=== PATIENT | male | born 1980 | race Caucasian/White ===

== ENCOUNTER 2017-05-22 06:20 | Emergency (ER) | payer MEDICAID ==
--- NOTE | 2017-05-22 06:53 | ED Physician Chart ---
Chief Complaint/HPI - Patient Information Date Seen:: 05/22/17 Time Seen:: 06:30 Chief Complaint:: dizziness and blurred vision History of Present Illness:: Patient is a blurred vision and slight dizziness for the last 15 days. Dizziness is increased when he turns his head. He denies chest pain and shortness of breath. He has had no recent upper respiratory tract infection or cough. Allergies:: Allergies Allergy/AdvReac Type Severity Reaction Status Date / Time No Known Allergies Allergy Verified 05/22/17 06:45 Vitals:: Vital Signs - 8 hr 05/22/17 06:25 Temp 97.3 F HR 55 RR 16 BP 121/65 O2 Sat % 95 Historian:: Patient Review:: Nurse's Note Reviewed Review of Systems - Review of Systems General/Constitutional: No fever, No chills Skin: No skin lesions, No rash, No bruising Head: No headache, Light headed Eyes: No loss of vision ENT: No earache, No sore throat Neck: No neck pain, No thyromegaly Cardio Vascular: No chest pain, No palpitations Pulmonary: No SOB, No cough GI: No nausea, No vomiting G/U: No dysuria, No frequency Musculoskeletal: No bone or joint pain, No muscle pain Psychiatric: No prior psych history, No depression Hematopoietic: No bruising, No lymphadenopathy Allergic/Immuno: No urticaria, No angioedema Neurological: No syncope, No focal symptoms Past Medical History - Past Medical History Past Medical History: DM Family History: None Social History: Non Smoker, Legally (no current alcohol use but formerly drank alcohol heavily), Other Surgical History: None Psychiatricy History: None Medication: Reviewed Physical Exam - Physical Examination General/Constitutional: Well-developed, well-nourished, Alert, No distress Head: Atraumatic Eyes: Lids, conjuctiva normal, PERRL, EOMI Other Eyes comments:: No nystagmus; optic disc sharp; slight exophthalmos noted Skin: Nl inspection, No rash, No skin lesions, No ecchymosis, Well hydrated, No lymphadenopathy ENMT: External ears, nose nl, TM canals nl, Nasal exam nl, Lips, teeth, gums nl , Oropharynx nl, Tonsils nl Neck: No nuchal rigidity Respiratory: Nl effort/Exclusion, Clear to Auscultation Cardio Vascular: RRR, No murmur, gallop, rubs, NL S1 S2 GI: No tenderness/rebounding/guarding, No organomegaly, No hernia, Normal BS's, Nondistended, No mass/bruits, No McBurney tenderness : No CVA tenderness Extremities: Normal digits & nails Neuro/Psych: Alert/oriented, No focal deficits Other Neuro/Psych comments:: No facial asymmetry; strong equal hand grasp; finger to nose test intact Labs/Radiology/EKG Results - EKG Interpretations Rate & Rhythm: normal sinus rhythm with a rate of 62 [place]: normal Assessment - Assessment General Assessment: Endorsed to Dr. Wayne Jane at 0700 ED Septic Shock - . Is Septic Shock (SBP<90, OR Lactate>4 mmol\L) present?: No - <6hrs of presentation: Vital Signs: Vital Signs - 8 hr 05/22/ 06:25 Temp 97.3 F HR 55 RR 16 BP 121/65 O2 Sat % 95 Reassessment (Disposition) - Diagnosis Diagnosis:: Benign positional vertigo - Patient Disposition Discharge/Transfer:: Home Condition at Disposition:: Stable
[2017-05-22 07:08] LABS: % BASOPHILS 0.2 % (0.0-2.0); % EOSINOPHILS 9.7 % (0.0-5.0); % LYMPHOCYTES 33.4 % (20.0-50.0); % MONOCYTES 5.3 % (2.0-10.0); % NEUTROPHILS 51.4 % (40.0-80.0); HEMATOCRIT 45.6 % (39.0-49.0); HEMOGLOBIN 15.5 gm/dL (13.2-17.3); MEAN CORPUSCULAR HEMOGLOBIN 31.5 pg (26.0-30.0); MEAN CORPUSCULAR HGB CONC 33.9 pg (28.0-36.0); MEAN PLATELET VOLUME 8.6 fl; NEUTROPHILE ABSOLUTE 2.7 Th/cmm (1.8-8.0); PLATELET COUNT 126 Th/cmm (150-400); RED BLOOD COUNT 4.91 Mil/cmm (4.30-5.70); RED CELL DISTRIBUTION WIDTH 12.4 % (11.5-20.0); WHITE BLOOD COUNT 5.3 Th/cmm (4.8-10.8)
[2017-05-22 07:16] LABS: ANION GAP 7.4 (7.0-16.0); BUN - UREA NITROGEN 15 mg/dL (7-25); BUN/CREATININE RATIO 16.7; CALCIUM SERUM 9.6 mg/dL (8.6-10.3); CARBON DIOXIDE 29.5 mEq/L (21.0-31.0); CHLORIDE 104 mEq/L (98-107); CREATININE - SERUM 0.9 mg/dL (0.7-1.3); GLUCOSE 90 mg/dL (70-105); MAGNESIUM 1.9 mg/dL (1.9-2.7); POTASSIUM SERUM 3.9 mEq/L (3.5-5.1); SODIUM SERUM 137 mEq/L (136-145)
[2017-05-22 08:07] LABS: URINE COLOR YELLOW
[2017-05-22 08:08] LABS: URINE BILIRUBIN NEGATIVE (NEGATIVE); URINE BLOOD NEGATIVE (NEGATIVE); URINE GLUCOSE (UA) NEGATIVE (NEGATIVE); URINE KETONE 15 mg/dL (NEGATIVE); URINE PH 5.5; URINE PROTEIN 30 mg/dL (NEGATIVE); URINE UROBILINOGEN 0.2 E.U./dL (0.2 - 1.0)
[2017-05-22 08:11] LABS: URINE BACTERIA FEW /hpf (NONE SEEN); URINE EPITHELIAL CELLS OCCASIONAL /lpf (FEW); URINE RBC 0-2 /hpf (0-5); URINE WBC 0-2 /hpf (0-5)
[2017-05-22 08:14] LABS: AMPHETAMINE URINE NEGATIVE (NEGATIVE); BARBITURATES URINE NEGATIVE (NEGATIVE); METHADONE URINE NEGATIVE (NEGATIVE)
== END 2017-05-22 09:35 | disposition home or self-care (01) ==
LOC: ER 06:20
DX: H81.10 Benign paroxysmal vertigo, unspecified ear (principal); E11.9 Type 2 diabetes mellitus without complications
CPT/HCPCS: 36415-UA; 80048-TC; 80307; 81001-TC; 83735-TC; 84443-TC; 84484-TC; 85025-TC; Z7502